=== PATIENT | female | born 1990 | race Caucasian/White ===

== ENCOUNTER 2021-03-11 18:57 | Inpatient (IN) | payer BC ==
[2021-03-11 19:36] VITALS: BMI 32.8
[2021-03-11 19:42] LABS: Fetal Membranes Rupture RUPTURE DETECTED (No Rupture)
[2021-03-11] MEDS ORDERED: Ibuprofen 800 MG TAB PO PRN (20:17)
[2021-03-11] MEDS ORDERED: Methylergonovine 0.2 MG/ML VIAL IM PRN (20:17)
[2021-03-11] MEDS ORDERED: Lidocaine 1% (PF) 30 ML VIAL SC PRN (20:17)
[2021-03-11] MEDS ORDERED: Promethazine HCl 25 MG/ML VIAL IM PRN (20:17)
[2021-03-11] MEDS ORDERED: Zolpidem Tartrate 5 MG TAB PO PRN (20:17)
[2021-03-11] MEDS ORDERED: Carboprost 250 MCG/ML AMP IM PRN (20:17)
[2021-03-11] MEDS ORDERED: Butorphanol Tartrate 1 MG/ML VIAL SLOW IVP PRN (20:17)
[2021-03-11] MEDS ORDERED: Ondansetron PF 4 MG/2 ML Vial IVP PRN (20:17)
[2021-03-11] MEDS ORDERED: Diphenoxylate HCl/Atropine Tablet PO PRN (20:17)
[2021-03-11] MEDS ORDERED: Misoprostol 200 MCG TAB PR PRN (20:17)
[2021-03-11] MEDS ORDERED: hydrALAZINE 20 MG/ML VIAL SLOW IVP PRN (20:17)
[2021-03-11] MEDS ORDERED: NS w/ Oxytocin 30 units 500 ML IV SCH (20:30)
[2021-03-11 21:29] LABS: Hemoglobin 12.8 g/dL (12.0-15.5); Mean Corpuscular HGB CONC 34.8 g/dL (32.0-36.0); Mean Corpuscular Hemoglobin 31.7 pg (27.0-33.0); Mean Corpuscular Volume 91.1 fl (81.6-98.3); Mean Platelet Volume 10.8 fl (7.4-10.4); Platelet Count 276 10x3/uL (150-450); RBC Distribution Width 12.7 % (11.5-14.5); Red Blood Cell (RBC) Count 4.04 10x6/uL (3.90-5.03); White Blood Cell (WBC) Count 12.5 10x3/uL (3.5-10.5)
[2021-03-11] MEDS: Lactated Ringer's 1,000 ML IV SCH (21:45)
[2021-03-11 22:01] LABS: Syphilis Antibody Nonreactive (Nonreactive); Syphilis Antibody Index 0.06 S/CO (<1.00 Non-Reactive)
[2021-03-11 22:01] LABS: Hep B Surf Ag Non-Reactive S/CO (NonReactive)
[2021-03-11 22:02] LABS: HBSAg Index 0.16 S/CO (0-0.99)
[2021-03-11 22:52] LABS: SARS-CoV-2 NAA Rapid Test Not Detected (NotDetected)
[2021-03-12] MEDS: NS w/ Oxytocin 30 units 500 ML IV SCH ×2 (02:46→09:43)
[2021-03-12] MEDS: Lactated Ringer's 1,000 ML IV SCH (02:47)
[2021-03-12] MEDS ORDERED: Calcium Carbonate 500 MG ChewTAB PO SCH (05:15)
[2021-03-12] MEDS ORDERED: Misoprostol 200 MCG TAB ONE (08:38)
[2021-03-12] MEDS ORDERED: traMADol HCl 50 MG TAB PO PRN (09:43)
[2021-03-12] MEDS ORDERED: hydrALAZINE 20 MG/ML VIAL SLOW IVP PRN (09:43)
[2021-03-12] MEDS ORDERED: Bisacodyl 10 MG SUPP PR PRN (09:43)
[2021-03-12] MEDS ORDERED: Milk Of Magnesia 30 ML UDCUP PO PRN (09:43)
[2021-03-12] MEDS ORDERED: Benzocaine-Menthol 82.5 ML CAN TOP PRN (09:43)
[2021-03-12] MEDS ORDERED: Boostrix 0.5 ML (Tdap) VIAL IM ONE (09:43)
[2021-03-12] MEDS ORDERED: Ibuprofen 800 MG TAB PO SCH (10:15)
[2021-03-12] MEDS: Ibuprofen 800 MG TAB PO SCH ×2 (15:49→18:56)
[2021-03-12] MEDS: Ferrous Sulfate 325 MG TAB PO SCH (18:09)
[2021-03-12] MEDS: Docusate Calcium (SURFAK) 240 MG CAP PO SCH (21:43)
[2021-03-13] MEDS: Ibuprofen 800 MG TAB PO SCH ×3 (02:06→22:13)
[2021-03-13] MEDS: Ferrous Sulfate 325 MG TAB PO SCH ×2 (10:07→16:36)
[2021-03-13] MEDS: Docusate Calcium (SURFAK) 240 MG CAP PO SCH ×2 (10:09→22:12)
[2021-03-13] MEDS: Prenatal Vitamin 1 TAB PO SCH (10:09)
[2021-03-14] MEDS: Ibuprofen 800 MG TAB PO SCH ×3 (05:35→14:06)
[2021-03-14] MEDS: Ferrous Sulfate 325 MG TAB PO SCH (07:51)
[2021-03-14 08:03] VITALS: BP 110/58; TEMP 98.2
[2021-03-14] MEDS: Prenatal Vitamin 1 TAB PO SCH (09:49)
[2021-03-14] MEDS: Docusate Calcium (SURFAK) 240 MG CAP PO SCH (09:50)
== END 2021-03-14 17:56 | disposition home or self-care (01) | DRG 807 ==
LOC: CSHLD/OP 18:57 → CSHLD 18:58 → CSHPP 03-12 13:50
PROVIDERS: ADMIT Obstetrics & Gynecology; ATTEND Obstetrics & Gynecology
PROC: 10E0XZZ Delivery of Products of Conception, External Approach (ICD-10-PCS; principal; 2021-03-12)
PROC: 0UQMXZZ Repair Vulva, External Approach (ICD-10-PCS; 2021-03-12)
DX: O42.02 Full-term premature rupture of membranes, onset of labor within 24 hours of rupture (principal); Z37.0 Single live birth; O70.0 First degree perineal laceration during delivery; Z3A.38 38 weeks gestation of pregnancy; Z20.822 Contact with and (suspected) exposure to COVID-19
CPT/HCPCS: 36415; 84112; 85027; 86780; 86850; 86900; 86901; 87340; J0595; J2001; J2590; J7120; U0002